=== PATIENT | female | born 2000 | race Caucasian/White ===

== ENCOUNTER 2022-10-17 21:37 | Emergency (ER) | payer OTHER, SELFPAY | END 2022-10-17 22:34 | disposition home or self-care (01) | LOC: NAV ERS 21:37 | DX: S80.11XA Contusion of right lower leg, initial encounter (principal); S50.312A Abrasion of left elbow, initial encounter; S50.311A Abrasion of right elbow, initial encounter; W10.9XXA Fall (on) (from) unspecified stairs and steps, initial encounter ==